=== PATIENT | female | born 1990 | race Caucasian/White ===

== ENCOUNTER 2016-09-03 23:02 | Emergency (ER) | payer BC, OTHER ==
[~2016-09-03] VITALS: Ht 160 cm; Wt 123.9 kg
[~2016-09-03 23:02] MED LIST: AUGMENTIN875 MG PO; CEFTIN500 MG PO; ENDOCET 5-3251 EACH PO; ERGOCALCIF50000 UNIT PO; FLEXERIL10 MG PO; IBUPROFEN800 MG PO; IRON325 M1 PO; LABETALOL HCL200 MG PO; LORTAB 5-325 M1 EACH PO; NAPROSYN500 MG PO; NOHOMEMEDS; NYSTATIN15 GM TP; PEPCID20 MG PO; PRENATAL TABLE1 EAC3 PO; VITAMIN D-32000 UNI1 PO; ZANTAC150 MG PO; ZITHROMAX250 MG PO; ZOFRAN ODT4 MG PO
[2016-09-03 23:10] VITALS: BP 142/87
== END 2016-09-04 00:48 | disposition home or self-care (01) ==
LOC: EME 23:02
DX: S83.91XA Sprain of unspecified site of right knee, initial encounter (principal); X50.9XXA Other and unspecified overexertion or strenuous movements or postures, initial encounter; Z33.1 Pregnant state, incidental; Z3A.18 18 weeks gestation of pregnancy
CPT/HCPCS: 99281; 99283

== ENCOUNTER → 2016-10-27 | Outpatient (CLI) | payer BC, OTHER ==
[~2016-10-27] VITALS: Ht 162.6 cm; Wt 124.3 kg
[~2016-10-27] MED LIST changes: +LO-DOSE ASPIRIN81 M2 PO
[2016-10-27 14:16] VITALS: BP 117/75
== END | disposition home or self-care (01) ==
LOC: IVINF 13:53
DX: Z31.82 Encounter for Rh incompatibility status (principal); Z3A.28 28 weeks gestation of pregnancy
CPT/HCPCS: 96372; J2790

== ENCOUNTER 2016-12-07 12:55 | Outpatient (CLI) | payer BC, OTHER ==
[~2016-12-07] VITALS: Ht 162.6 cm; Wt 130.1 kg
[2016-12-07 13:15] VITALS: BP 121/81
[2016-12-07] MEDS ORDERED: ZANTAC150 MG PO (13:31)
[2016-12-07 13:33] VITALS: BP 131/98
[2016-12-07 13:58] VITALS: BP 134/79
[2016-12-07 14:25] VITALS: BP 100/75
[2016-12-07 14:59] VITALS: BP 130/86
[2016-12-07 15:17] LABS: EOSINOPHIL (%) 1.4 % (0-5); EOSINOPHIL COUNT 0.1 K/uL (0-0.3); HEMATOCRIT 36.9 % (36.0-46.0); IMMATURE GRANULOCYTE (%) 0.7 % (0.0-0.7); IMMATURE GRANULOCYTE COUNT 0.1 K/uL; INSTRUMENT ABS NEUTROPHIL CT 4.2 K/uL; LYMPHOCYTE COUNT 2.5 K/uL (1.0-2.8); MCH 24.8 PG (29.0-34.0); MCV 77.7 FL (83-99); MEAN PLAT.VOLUME 9.9 uM^3 (9.5-12.4); MONOCYTE (%) 5.5 % (3-12); MONOCYTE COUNT 0.4 K/uL (0-0.8); NEUTROPHIL (%) 58.3 % (45-76); NEUTROPHIL COUNT 4.2 K/uL (1.8-6.4); PLATELET COUNT 269 K/uL (156-360); RBC DIS.WIDTH-CV 15.1 % (11.8-14.6); RBC DIS.WIDTH-SD 42.2 % (39-53); RED BLOOD COUNT 4.75 M/uL (3.80-5.20); WHITE BLOOD COUNT 7.3 K/uL (4.1-10.2)
[2016-12-07 15:38] LABS: ANION GAP 8 MEQ/L (2-14); CHLORIDE 105 MEQ/L (99-109); POTASSIUM 4.2 MEQ/L (3.7-5.4); SAMPLE HEMOLYSIS CHECK 0; SAMPLE ICTERIC CHECK 0; SAMPLE LIPEMIA CHECK 0; SODIUM 137 MEQ/L (136-147); TOTAL BILIRUBIN 0.3 MG/DL (0.0-1.0)
[2016-12-07 15:44] LABS: ALKALINE PHOSPHATASE 135 IU/L (3-129); GFR ESTIMATE (CALCULATED) > 59 mL/min/; GLUCOSE 70 mg/dL (70-99); LACTATE DEHYDROGENASE 165 IU/L (20-246); UREA NITROGEN (BUN) 11 mg/dL (9-23); URIC ACID 4.9 mg/dL (3.1-9.2)
[2016-12-07 17:42] LABS: UR CREATININE CONCENTRATION 147.8 MG/DL
[2016-12-08] MEDS ORDERED: PROCARDIA XL30 MG PO (03:59)
== END 2016-12-07 17:32 | disposition home or self-care (01) ==
LOC: LDRP-OP → 2WEST 12:56 → LDRP-OP 03-05 15:25
PROVIDERS: Advanced Practice Midwife
DX: O13.9 Gestational [pregnancy-induced] hypertension without significant proteinuria, unspecified trimester (principal); T46.1X6A Underdosing of calcium-channel blockers, initial encounter; Z91.138 Patient's unintentional underdosing of medication regimen for other reason
CPT/HCPCS: 59025; 80053; 82570; 83615; 84156; 84550; 85025; G0378

== ENCOUNTER 2016-12-08 03:33 | Outpatient (CLI) | payer BC, OTHER ==
[~2016-12-08] VITALS: Ht 162.6 cm; Wt 130.0 kg
[2016-12-08] VITALS (10 sets, daily range): BP systolic 116–157; BP diastolic 65–99
[2016-12-08] MEDS ORDERED: PROCARDIA XL30 MG PO (03:59)
[2016-12-09 02:57] VITALS: BP 116/71
[2016-12-09 08:23] VITALS: BP 122/70
[2016-12-09] MEDS ORDERED: BUTALB-APAP-CA1 EACH PO (09:33)
== END 2016-12-09 09:50 | disposition home or self-care (01) ==
LOC: LDRP-OP 03:33 → 2WEST 03:34 → LDRP-OP 03-05 17:58
PROVIDERS: Advanced Practice Midwife
DX: O10.913 Unspecified pre-existing hypertension complicating pregnancy, third trimester (principal); Z91.14 Patient's other noncompliance with medication regimen; Z3A.32 32 weeks gestation of pregnancy
CPT/HCPCS: 59025; 81050; 84156; G0378

== ENCOUNTER 2016-12-25 19:57 | Inpatient (IN) | payer BC, OTHER ==
[~2016-12-25] VITALS: Ht 162.6 cm; Wt 133.0 kg
[~2016-12-25 19:57] MED LIST changes: +BUTALB-APAP-CA1 EACH PO; +PROCARDIA XL30 MG PO
[2016-12-25 20:12] VITALS: BP 139/89
[2016-12-25 20:44] VITALS: BP 155/99
[2016-12-25 21:17] VITALS: BP 148/94
[2016-12-25 21:31] LABS: EOSINOPHIL (%) 0.6 % (0-5); EOSINOPHIL COUNT 0.1 K/uL (0-0.3); HEMATOCRIT 35.3 % (36.0-46.0); IMMATURE GRANULOCYTE (%) 0.6 % (0.0-0.7); IMMATURE GRANULOCYTE COUNT 0.1 K/uL; LYMPHOCYTE COUNT 2.8 K/uL (1.0-2.8); MCH 25.4 PG (29.0-34.0); MCHC 32.6 G/DL (30.0-36.0); MCV 78.1 FL (83-99); MEAN PLAT.VOLUME 10.7 uM^3 (9.5-12.4); MONOCYTE (%) 5.2 % (3-12); MONOCYTE COUNT 0.4 K/uL (0-0.8); NEUTROPHIL (%) 59.7 % (45-76); PLATELET COUNT 239 K/uL (156-360); RBC DIS.WIDTH-CV 15.2 % (11.8-14.6); RBC DIS.WIDTH-SD 42.8 % (39-53); RED BLOOD COUNT 4.52 M/uL (3.80-5.20); WHITE BLOOD COUNT 8.3 K/uL (4.1-10.2)
[2016-12-25 21:44] LABS: ANION GAP 8 MEQ/L (2-14); CHLORIDE 108 MEQ/L (99-109); POTASSIUM 4.1 MEQ/L (3.7-5.4); SAMPLE HEMOLYSIS CHECK 0; SAMPLE ICTERIC CHECK 0; SAMPLE LIPEMIA CHECK 0; SODIUM 140 MEQ/L (136-147); TOTAL BILIRUBIN 0.3 MG/DL (0.0-1.0)
[2016-12-25 21:49] VITALS: BP 154/103
[2016-12-25 21:50] LABS: ALKALINE PHOSPHATASE 173 IU/L (3-129); GFR ESTIMATE (CALCULATED) > 59 mL/min/; GLUCOSE 87 mg/dL (70-99); LACTATE DEHYDROGENASE 165 IU/L (20-246); UREA NITROGEN (BUN) 15 mg/dL (9-23); URIC ACID 5.7 mg/dL (3.1-9.2)
[2016-12-25 22:07] LABS: UR CREATININE CONCENTRATION 288.5 MG/DL
[2016-12-25 22:33] LABS: CANDIDA DNA PROBE NEGATIVE; GARDNERELLA DNA PROBE NEGATIVE; INTERNAL CONTROL VALID? YES
[2016-12-25 23:04] VITALS: BP 143/103
[2016-12-25 23:47] VITALS: BP 131/81
[2016-12-26] VITALS (10 sets, daily range): BP systolic 119–162; BP diastolic 74–97
[2016-12-26] MEDS ORDERED: PROCARDIA XL60 MG PO (07:04)
[2016-12-26] MEDS ORDERED: URISOL (07:06)
[2016-12-26 07:40] LABS: ADD MIUA? YES; BILIRUBIN NEGATIVE; BLOOD NEGATIVE; COLOR AMBER ((YELLOW)); GLUCOSE (STRIP) NEGATIVE; KETONES 5; LEUKOCYTES NEGATIVE; NITRITE NEGATIVE; PROTEIN (STRIP) >=500; SPECIFIC GRAVITY 1.029 (1.000-1.030); UROBILINOGEN 0.2 MG/DL (0.2-1.0)
[2016-12-26 07:49] LABS: BACTERIA RARE /HPF; EPITHELIAL CELLS RARE /HPF; MUCUS 3+ /LPF; RED BLOOD CELLS 0-5 /HPF (0-5); WHITE BLOOD CELLS 0-5 /HPF (0-5)
[2016-12-26 15:31] LABS: ALKALINE PHOSPHATASE 180 IU/L (3-129); ANION GAP 10 MEQ/L (2-14); CHLORIDE 107 MEQ/L (99-109); GFR ESTIMATE (CALCULATED) > 59 mL/min/; GLUCOSE 122 mg/dL (70-99); POTASSIUM 4.1 MEQ/L (3.7-5.4); SAMPLE HEMOLYSIS CHECK 0; SAMPLE ICTERIC CHECK 0; SAMPLE LIPEMIA CHECK 0; SODIUM 137 MEQ/L (136-147); UREA NITROGEN (BUN) 16 mg/dL (9-23)
[2016-12-26 15:40] LABS: TOTAL BILIRUBIN 0.4 MG/DL (0.0-1.0)
[2016-12-27] VITALS (19 sets, daily range): BP systolic 120–164; BP diastolic 69–105
[2016-12-27 13:29] LABS: EOSINOPHIL (%) 0.1 % (0-5); HEMATOCRIT 35.5 % (36.0-46.0); IMMATURE GRANULOCYTE (%) 2.5 % (0.0-0.7); IMMATURE GRANULOCYTE COUNT 0.2 K/uL; INSTRUMENT ABS NEUTROPHIL CT 5.9 K/uL; LYMPHOCYTE COUNT 1.8 K/uL (1.0-2.8); MCH 25.2 PG (29.0-34.0); MCHC 31.8 G/DL (30.0-36.0); MCV 79.1 FL (83-99); MEAN PLAT.VOLUME 10.7 uM^3 (9.5-12.4); MONOCYTE (%) 4.2 % (3-12); MONOCYTE COUNT 0.4 K/uL (0-0.8); NEUTROPHIL (%) 71.4 % (45-76); NEUTROPHIL COUNT 5.9 K/uL (1.8-6.4); PLATELET COUNT 240 K/uL (156-360); RBC DIS.WIDTH-CV 15.6 % (11.8-14.6); RBC DIS.WIDTH-SD 44.4 % (39-53); RED BLOOD COUNT 4.49 M/uL (3.80-5.20); WHITE BLOOD COUNT 8.2 K/uL (4.1-10.2)
[2016-12-28] VITALS (16 sets, daily range): BP systolic 133–178; BP diastolic 74–94
[2016-12-28 06:19] LABS: EOSINOPHIL (%) 0.1 % (0-5); HEMATOCRIT 28.2 % (36.0-46.0); IMMATURE GRANULOCYTE COUNT 0.1 K/uL; INSTRUMENT ABS NEUTROPHIL CT 7.3 K/uL; LYMPHOCYTE COUNT 2.4 K/uL (1.0-2.8); MCH 25.8 PG (29.0-34.0); MCV 78.3 FL (83-99); MEAN PLAT.VOLUME 10.9 uM^3 (9.5-12.4); MONOCYTE (%) 5.8 % (3-12); MONOCYTE COUNT 0.6 K/uL (0-0.8); NEUTROPHIL (%) 69.6 % (45-76); NEUTROPHIL COUNT 7.3 K/uL (1.8-6.4); PLATELET COUNT 213 K/uL (156-360); RBC DIS.WIDTH-CV 15.8 % (11.8-14.6); RBC DIS.WIDTH-SD 45.1 % (39-53); WHITE BLOOD COUNT 10.5 K/uL (4.1-10.2)
[2016-12-28 06:44] LABS: ANION GAP 7 MEQ/L (2-14); CHLORIDE 104 MEQ/L (99-109); GFR ESTIMATE (CALCULATED) > 59 mL/min/; GLUCOSE 108 mg/dL (70-99); SAMPLE HEMOLYSIS CHECK 0; SAMPLE ICTERIC CHECK 0; SAMPLE LIPEMIA CHECK 0; SODIUM 135 MEQ/L (136-147); UREA NITROGEN (BUN) 10 mg/dL (9-23)
[2016-12-28 06:47] LABS: ALKALINE PHOSPHATASE 118 IU/L (3-129); TOTAL BILIRUBIN 0.2 MG/DL (0.0-1.0)
[2016-12-29 03:36] VITALS: BP 123/61
[2016-12-29 07:33] VITALS: BP 132/80
[2016-12-29 11:00] VITALS: BP 127/74
[2016-12-29 15:00] VITALS: BP 136/77
[2016-12-29 19:52] VITALS: BP 138/77
[2016-12-30] VITALS (7 sets, daily range): BP systolic 112–145; BP diastolic 56–90
[2016-12-30 01:02] LABS: EOSINOPHIL (%) 0.6 % (0-5); EOSINOPHIL COUNT 0.1 K/uL (0-0.3); HEMATOCRIT 29.2 % (36.0-46.0); IMMATURE GRANULOCYTE COUNT 0.1 K/uL; INSTRUMENT ABS NEUTROPHIL CT 6.3 K/uL; LYMPHOCYTE COUNT 1.3 K/uL (1.0-2.8); MCH 25.1 PG (29.0-34.0); MCHC 31.5 G/DL (30.0-36.0); MCV 79.8 FL (83-99); MEAN PLAT.VOLUME 9.9 uM^3 (9.5-12.4); MONOCYTE (%) 3.6 % (3-12); MONOCYTE COUNT 0.3 K/uL (0-0.8); NEUTROPHIL (%) 78.3 % (45-76); NEUTROPHIL COUNT 6.3 K/uL (1.8-6.4); PLATELET COUNT 222 K/uL (156-360); RBC DIS.WIDTH-SD 46.4 % (39-53); RED BLOOD COUNT 3.66 M/uL (3.80-5.20)
[2016-12-31 03:14] VITALS: BP 122/74
[2016-12-31 14:56] VITALS: BP 143/81
[2016-12-31] MEDS ORDERED: ENDOCET 5-3251 EACH PO (16:10)
[2016-12-31] MEDS ORDERED: Procardia XL,Adalat PO (16:10)
[2016-12-31] MEDS ORDERED: AMOX TR-K CLV1 EAC4 PO (16:10)
[2016-12-31] MEDS ORDERED: LABETALOL HCL200 MG PO (16:10)
[2016-12-31 17:53] VITALS: BP 132/79
== END 2016-12-31 18:00 | disposition home or self-care (01) | DRG 765 ==
LOC: LDRP-OP → 2WEST 19:59 → LDRP-OP 03-05 13:24
PROVIDERS: Advanced Practice Midwife; Obstetrics & Gynecology
PROC: 10D00Z1 Extraction of Products of Conception, Low, Open Approach (ICD-10-PCS; principal; 2016-12-25)
DX: O60.14X0 Preterm labor third trimester with preterm delivery third trimester, not applicable or unspecified (principal); O26.62 Liver and biliary tract disorders in childbirth; O34.211 Maternal care for low transverse scar from previous cesarean delivery; O86.12 Endometritis following delivery; O99.214 Obesity complicating childbirth; K83.1 Obstruction of bile duct; E66.01 Morbid (severe) obesity due to excess calories; O14.14 Severe pre-eclampsia complicating childbirth; Z68.42 Body mass index [BMI] 45.0-49.9, adult; Z3A.34 34 weeks gestation of pregnancy; Z37.0 Single live birth
CPT/HCPCS: 76818; 80053; 80170; 81003; 81050; 82239 90; 82570; 83030; 83615; 84156; 84550; 85025; 86870; 86900; 86901; 86905; 86920; 87086; 87480; 87510; 87660; G0378; J0290; J0690; J0702; J1200; J1580; J2175; J2270; J2274; J2765; J2790; J3475; J7050; J7120; Q0177

== ENCOUNTER 2017-04-27 08:30 | Emergency (ER) | payer OTHER ==
[~2017-04-27] VITALS: Ht 162.6 cm; Wt 127.6 kg
[~2017-04-27 08:30] MED LIST changes: +AMOX TR-K CLV1 EAC4 PO; +PROCARDIA XL60 MG PO; +Procardia XL,Adalat PO; +URISOL
[2017-04-27 09:42] VITALS: BP 118/83
== END 2017-04-27 09:30 | disposition home or self-care (01) ==
LOC: EME 08:30
DX: M54.2 Cervicalgia (principal); Z33.1 Pregnant state, incidental; Z3A.01 Less than 8 weeks gestation of pregnancy
CPT/HCPCS: 99281; 99283

== ENCOUNTER 2017-08-17 12:15 | Outpatient (CLI) | payer OTHER ==
[2017-08-17] VITALS (11 sets, daily range): BP systolic 110–173; BP diastolic 58–96
[2017-08-17] MEDS ORDERED: LO-DOSE ASPIRIN81 M1 PO (13:06)
[2017-08-17 13:46] LABS: BASOPHIL (%) 0.1 % (0-1); EOSINOPHIL (%) 1.2 % (0-5); EOSINOPHIL COUNT 0.1 K/uL (0-0.3); HEMATOCRIT 35.9 % (36.0-46.0); HEMOGLOBIN 11.4 G/DL (11.9-15.5); IMMATURE GRANULOCYTE (%) 0.4 % (0.0-0.7); LYMPHOCYTE (%) 29.3 % (15-42); LYMPHOCYTE COUNT 2.2 K/uL (1.0-2.8); MCH 24.1 PG (29.0-34.0); MCHC 31.8 G/DL (30.0-36.0); MCV 75.7 FL (83-99); MONOCYTE (%) 5.3 % (3-12); MONOCYTE COUNT 0.4 K/uL (0-0.8); NEUTROPHIL (%) 63.7 % (45-76); NEUTROPHIL COUNT 4.8 K/uL (1.8-6.4); PLATELET COUNT 291 K/uL (156-360); RBC DIS.WIDTH-CV 15.9 % (11.8-14.6); RBC DIS.WIDTH-SD 43.3 % (39-53); RED BLOOD COUNT 4.74 M/uL (3.80-5.20); WHITE BLOOD COUNT 7.5 K/uL (4.1-10.2)
[2017-08-17 13:55] LABS: UR CREATININE CONCENTRATION 222.4 MG/DL
[2017-08-17 14:04] LABS: ALBUMIN 3.2 G/DL (3.2-4.8); ALKALINE PHOSPHATASE 95 IU/L (3-129); ALT (GPT) 22 IU/L (3-49); AST (GOT) 27 IU/L (2-34); CHLORIDE 105 MEQ/L (99-109); CREATININE 0.6 MG/DL (0.6-1.3); GFR ESTIMATE (CALCULATED) > 59 mL/min/; GLUCOSE 88 mg/dL (70-99); POTASSIUM 4.4 MEQ/L (3.7-5.4); SODIUM 138 MEQ/L (136-147); TOTAL BILIRUBIN 0.3 MG/DL (0.0-1.0); TOTAL PROTEIN 6.3 G/DL (6.4-8.3); UREA NITROGEN (BUN) 10 mg/dL (9-23)
== END 2017-08-17 15:50 | disposition home or self-care (01) ==
LOC: LDRP-OP 12:15 → 2WEST 12:17
PROVIDERS: Midwife
DX: O13.2 Gestational [pregnancy-induced] hypertension without significant proteinuria, second trimester (principal); O26.892 Other specified pregnancy related conditions, second trimester; Z67.91 Unspecified blood type, Rh negative; G43.909 Migraine, unspecified, not intractable, without status migrainosus; O34.219 Maternal care for unspecified type scar from previous cesarean delivery; O99.342 Other mental disorders complicating pregnancy, second trimester; F32.9 Major depressive disorder, single episode, unspecified; F41.9 Anxiety disorder, unspecified; O99.712 Diseases of the skin and subcutaneous tissue complicating pregnancy, second trimester; L30.9 Dermatitis, unspecified; Z3A.23 23 weeks gestation of pregnancy
CPT/HCPCS: 59025; 80053; 82570; 84156; 85025; G0378

== ENCOUNTER → 2017-09-21 | Outpatient (CLI) | payer OTHER ==
[~2017-09-21] VITALS: Ht 160 cm; Wt 130.0 kg
[~2017-09-21] MED LIST changes: +LO-DOSE ASPIRIN81 M1 PO
[2017-09-21 07:34] VITALS: BP 139/65
== END | disposition home or self-care (01) ==
LOC: IVINF 07:25
DX: Z34.83 Encounter for supervision of other normal pregnancy, third trimester (principal); Z3A.28 28 weeks gestation of pregnancy; Z67.41 Type O blood, Rh negative
CPT/HCPCS: 96372; J2790

== ENCOUNTER 2017-11-01 16:28 | Outpatient (CLI) | payer OTHER ==
[2017-11-01] VITALS (13 sets, daily range): BP systolic 118–160; BP diastolic 58–108
[2017-11-01 17:37] LABS: BASOPHIL (%) 0.2 % (0-1); EOSINOPHIL (%) 0.8 % (0-5); EOSINOPHIL COUNT 0.1 K/uL (0-0.3); HEMATOCRIT 35.3 % (36.0-46.0); HEMOGLOBIN 11.2 G/DL (11.9-15.5); IMMATURE GRANULOCYTE (%) 0.6 % (0.0-0.7); LYMPHOCYTE (%) 30.5 % (15-42); LYMPHOCYTE COUNT 2.7 K/uL (1.0-2.8); MCH 24.1 PG (29.0-34.0); MCHC 31.7 G/DL (30.0-36.0); MCV 76.1 FL (83-99); MONOCYTE (%) 5.2 % (3-12); MONOCYTE COUNT 0.5 K/uL (0-0.8); NEUTROPHIL (%) 62.7 % (45-76); NEUTROPHIL COUNT 5.6 K/uL (1.8-6.4); PLATELET COUNT 272 K/uL (156-360); RBC DIS.WIDTH-CV 15.1 % (11.8-14.6); RBC DIS.WIDTH-SD 41.5 % (39-53); RED BLOOD COUNT 4.64 M/uL (3.80-5.20)
[2017-11-01 17:51] LABS: CHLORIDE 106 MEQ/L (99-109); POTASSIUM 4.4 MEQ/L (3.7-5.4); SODIUM 136 MEQ/L (136-147); TOTAL BILIRUBIN 0.3 MG/DL (0.0-1.0)
[2017-11-01 17:57] LABS: UR CREATININE CONCENTRATION 144.4 MG/DL
[2017-11-01 17:57] LABS: ALKALINE PHOSPHATASE 167 IU/L (3-129); ALT (GPT) 60 IU/L (3-49); AST (GOT) 57 IU/L (2-34); CREATININE 0.6 MG/DL (0.6-1.3); GFR ESTIMATE (CALCULATED) > 59 mL/min/; GLUCOSE 102 mg/dL (70-99); LACTATE DEHYDROGENASE 181 IU/L (20-246); TOTAL PROTEIN 5.9 G/DL (6.4-8.3); UREA NITROGEN (BUN) 12 mg/dL (9-23); URIC ACID 4.3 mg/dL (3.1-9.2)
[2017-11-01] MEDS ORDERED: ACTIGALL300 MG PO (18:45)
[2017-11-02 03:36] VITALS: BP 120/68
[2017-11-02 06:59] LABS: BASOPHIL (%) 0.3 % (0-1); EOSINOPHIL (%) 0.9 % (0-5); EOSINOPHIL COUNT 0.1 K/uL (0-0.3); HEMATOCRIT 36.5 % (36.0-46.0); HEMOGLOBIN 11.3 G/DL (11.9-15.5); IMMATURE GRANULOCYTE (%) 0.5 % (0.0-0.7); LYMPHOCYTE (%) 31.8 % (15-42); LYMPHOCYTE COUNT 2.5 K/uL (1.0-2.8); MCH 23.7 PG (29.0-34.0); MCV 76.5 FL (83-99); MONOCYTE (%) 5.1 % (3-12); MONOCYTE COUNT 0.4 K/uL (0-0.8); NEUTROPHIL (%) 61.4 % (45-76); NEUTROPHIL COUNT 4.8 K/uL (1.8-6.4); PLATELET COUNT 266 K/uL (156-360); RBC DIS.WIDTH-CV 15.1 % (11.8-14.6); RBC DIS.WIDTH-SD 41.6 % (39-53); RED BLOOD COUNT 4.77 M/uL (3.80-5.20); WHITE BLOOD COUNT 7.9 K/uL (4.1-10.2)
[2017-11-02 07:24] LABS: ALBUMIN 2.9 G/DL (3.2-4.8); ALKALINE PHOSPHATASE 155 IU/L (3-129); ALT (GPT) 61 IU/L (3-49); AST (GOT) 54 IU/L (2-34); CHLORIDE 103 MEQ/L (99-109); CREATININE 0.5 MG/DL (0.6-1.3); GFR ESTIMATE (CALCULATED) > 59 mL/min/; GLUCOSE 75 mg/dL (70-99); POTASSIUM 4.6 MEQ/L (3.7-5.4); SODIUM 136 MEQ/L (136-147); TOTAL BILIRUBIN 0.3 MG/DL (0.0-1.0); UREA NITROGEN (BUN) 10 mg/dL (9-23)
[2017-11-02 07:43] VITALS: BP 109/63
[2017-11-02 10:31] VITALS: BP 139/83
== END 2017-11-02 11:20 | disposition home or self-care (01) ==
LOC: LDRP-OP 16:28 → 2WEST 16:31 → LDRP-OP 01-14 15:57
PROVIDERS: Obstetrics & Gynecology
DX: O16.3 Unspecified maternal hypertension, third trimester (principal); O26.613 Liver and biliary tract disorders in pregnancy, third trimester; K83.1 Obstruction of bile duct; O99.89 Other specified diseases and conditions complicating pregnancy, childbirth and the puerperium; R79.89 Other specified abnormal findings of blood chemistry; O99.213 Obesity complicating pregnancy, third trimester; E66.01 Morbid (severe) obesity due to excess calories; Z68.42 Body mass index [BMI] 45.0-49.9, adult; O34.219 Maternal care for unspecified type scar from previous cesarean delivery; Z3A.33 33 weeks gestation of pregnancy; Z87.51 Personal history of pre-term labor
CPT/HCPCS: 59025; 80053; 82570; 83615; 84156; 84550; 85025; G0378

== ENCOUNTER 2017-11-03 09:31 | Outpatient (CLI) | payer OTHER ==
[2017-11-03] VITALS (9 sets, daily range): BP systolic 123–146; BP diastolic 75–94
[~2017-11-03 09:31] MED LIST changes: +ACTIGALL300 MG PO
[2017-11-03 11:01] LABS: BASOPHIL (%) 0.3 % (0-1); EOSINOPHIL (%) 0.8 % (0-5); EOSINOPHIL COUNT 0.1 K/uL (0-0.3); HEMATOCRIT 33.9 % (36.0-46.0); HEMOGLOBIN 10.9 G/DL (11.9-15.5); IMMATURE GRANULOCYTE (%) 0.3 % (0.0-0.7); LYMPHOCYTE (%) 27.7 % (15-42); LYMPHOCYTE COUNT 2.1 K/uL (1.0-2.8); MCH 24.5 PG (29.0-34.0); MCHC 32.2 G/DL (30.0-36.0); MCV 76.2 FL (83-99); MONOCYTE (%) 4.7 % (3-12); MONOCYTE COUNT 0.4 K/uL (0-0.8); NEUTROPHIL (%) 66.2 % (45-76); PLATELET COUNT 249 K/uL (156-360); RBC DIS.WIDTH-CV 15.1 % (11.8-14.6); RBC DIS.WIDTH-SD 41.7 % (39-53); RED BLOOD COUNT 4.45 M/uL (3.80-5.20); WHITE BLOOD COUNT 7.6 K/uL (4.1-10.2)
[2017-11-03 11:40] LABS: ALBUMIN 2.7 G/DL (3.2-4.8); ALKALINE PHOSPHATASE 147 IU/L (3-129); ALT (GPT) 54 IU/L (3-49); AST (GOT) 47 IU/L (2-34); CHLORIDE 106 MEQ/L (99-109); CREATININE 0.6 MG/DL (0.6-1.3); GFR ESTIMATE (CALCULATED) > 59 mL/min/; POTASSIUM 3.9 MEQ/L (3.7-5.4); SODIUM 138 MEQ/L (136-147); TOTAL PROTEIN 5.8 G/DL (6.4-8.3); UREA NITROGEN (BUN) 11 mg/dL (9-23)
[2017-11-03 11:44] LABS: GLUCOSE 95 mg/dL (70-99); TOTAL BILIRUBIN 0.4 MG/DL (0.0-1.0)
[2017-11-03 16:05] LABS: 24 HR VOLUME 1150 MLS
== END 2017-11-03 16:40 | disposition home or self-care (01) ==
LOC: LDRP-OP 09:31 → 2WEST 09:32 → LDRP-OP 01-14 11:34
PROVIDERS: Nurse Practitioner
DX: O13.3 Gestational [pregnancy-induced] hypertension without significant proteinuria, third trimester (principal); O26.613 Liver and biliary tract disorders in pregnancy, third trimester; K83.1 Obstruction of bile duct; Z3A.34 34 weeks gestation of pregnancy
CPT/HCPCS: 59025; 80053; 81050; 84156; 85025; G0378

== ENCOUNTER 2017-11-05 15:07 | Inpatient (IN) | payer OTHER ==
[~2017-11-05] VITALS: Ht 160 cm; Wt 131.8 kg
[2017-11-05] VITALS (7 sets, daily range): BP systolic 130–148; BP diastolic 77–100
[2017-11-05 15:53] LABS: BASOPHIL (%) 0.2 % (0-1); EOSINOPHIL (%) 0.4 % (0-5); HEMATOCRIT 34.4 % (36.0-46.0); HEMOGLOBIN 11.3 G/DL (11.9-15.5); IMMATURE GRANULOCYTE (%) 0.4 % (0.0-0.7); LYMPHOCYTE (%) 25.3 % (15-42); LYMPHOCYTE COUNT 2.3 K/uL (1.0-2.8); MCH 24.9 PG (29.0-34.0); MCHC 32.8 G/DL (30.0-36.0); MCV 75.8 FL (83-99); MONOCYTE (%) 5.6 % (3-12); MONOCYTE COUNT 0.5 K/uL (0-0.8); NEUTROPHIL (%) 68.1 % (45-76); NEUTROPHIL COUNT 6.1 K/uL (1.8-6.4); PLATELET COUNT 282 K/uL (156-360); RBC DIS.WIDTH-CV 15.4 % (11.8-14.6); RBC DIS.WIDTH-SD 41.3 % (39-53); RED BLOOD COUNT 4.54 M/uL (3.80-5.20)
[2017-11-05 16:33] LABS: ALBUMIN 3.1 G/DL (3.2-4.8); ALKALINE PHOSPHATASE 141 IU/L (3-129); ALT (GPT) 42 IU/L (3-49); AST (GOT) 39 IU/L (2-34); CHLORIDE 108 MEQ/L (99-109); CREATININE 0.7 MG/DL (0.6-1.3); GFR ESTIMATE (CALCULATED) > 59 mL/min/; GLUCOSE 90 mg/dL (70-99); SODIUM 137 MEQ/L (136-147); TOTAL PROTEIN 6.2 G/DL (6.4-8.3); UREA NITROGEN (BUN) 11 mg/dL (9-23)
[2017-11-05 16:35] LABS: TOTAL BILIRUBIN 0.3 MG/DL (0.0-1.0)
[2017-11-05 18:54] LABS: PHENCYCLIDINE NEGATIVE (25 ng/mL); THC CANNABINOIDS NEGATIVE (50 ng/mL)
[2017-11-05 18:55] LABS: AMPHETAMINE NEGATIVE (500 ng/mL); BARBITURATES NEGATIVE (200 ng/mL); BENZODIAZEPINES NEGATIVE (150 ng/mL); BUPRENORPHINE NEGATIVE (10 ng/mL); COCAINE NEGATIVE (150 ng/mL); METHADONE NEGATIVE (200 ng/mL); METHAMPHETAMINE NEGATIVE (500 ng/mL); OPIATES (MORPHINE) NEGATIVE (100 ng/mL); OXYCODONE NEGATIVE (100 ng/mL); PROPOXYPHENE NEGATIVE (300 ng/mL); TRICYCLIC ANTIDEPRESSANTS NEGATIVE (300 ng/mL)
[2017-11-06] VITALS (19 sets, daily range): BP systolic 118–175; BP diastolic 58–110
[2017-11-06 06:11] LABS: BASOPHIL (%) 0.2 % (0-1); EOSINOPHIL (%) 0 % (0-5); HEMATOCRIT 36.4 % (36.0-46.0); HEMOGLOBIN 11.6 G/DL (11.9-15.5); IMMATURE GRANULOCYTE (%) 1.2 % (0.0-0.7); LYMPHOCYTE (%) 15.4 % (15-42); LYMPHOCYTE COUNT 1.4 K/uL (1.0-2.8); MCH 24.3 PG (29.0-34.0); MCHC 31.9 G/DL (30.0-36.0); MCV 76.3 FL (83-99); MONOCYTE (%) 1.4 % (3-12); MONOCYTE COUNT 0.1 K/uL (0-0.8); NEUTROPHIL (%) 81.8 % (45-76); NEUTROPHIL COUNT 7.5 K/uL (1.8-6.4); PLATELET COUNT 284 K/uL (156-360); RBC DIS.WIDTH-CV 15.2 % (11.8-14.6); RBC DIS.WIDTH-SD 41.6 % (39-53); RED BLOOD COUNT 4.77 M/uL (3.80-5.20); WHITE BLOOD COUNT 9.1 K/uL (4.1-10.2)
[2017-11-06 06:29] LABS: ALKALINE PHOSPHATASE 147 IU/L (3-129); ALT (GPT) 41 IU/L (3-49); AST (GOT) 39 IU/L (2-34); CHLORIDE 104 MEQ/L (99-109); CREATININE 0.6 MG/DL (0.6-1.3); GFR ESTIMATE (CALCULATED) > 59 mL/min/; SODIUM 136 MEQ/L (136-147); TOTAL BILIRUBIN 0.3 MG/DL (0.0-1.0); TOTAL PROTEIN 6.1 G/DL (6.4-8.3); UREA NITROGEN (BUN) 11 mg/dL (9-23)
[2017-11-06 06:38] LABS: GLUCOSE 114 mg/dL (70-99)
[2017-11-06] MEDS ORDERED: PERCOCET 5/31 TABLET PO (08:02)
[2017-11-06] MEDS ORDERED: MOTRIN800 MG PO (08:02)
[2017-11-07] VITALS (17 sets, daily range): BP systolic 105–136; BP diastolic 55–81
[2017-11-07 05:35] LABS: BASOPHIL (%) 0.1 % (0-1); EOSINOPHIL (%) 0 % (0-5); HEMATOCRIT 30.6 % (36.0-46.0); HEMOGLOBIN 9.7 G/DL (11.9-15.5); IMMATURE GRANULOCYTE (%) 0.6 % (0.0-0.7); LYMPHOCYTE (%) 16.4 % (15-42); LYMPHOCYTE COUNT 1.8 K/uL (1.0-2.8); MCH 24.4 PG (29.0-34.0); MCHC 31.7 G/DL (30.0-36.0); MCV 76.9 FL (83-99); MONOCYTE (%) 6.6 % (3-12); MONOCYTE COUNT 0.7 K/uL (0-0.8); NEUTROPHIL (%) 76.3 % (45-76); NEUTROPHIL COUNT 8.4 K/uL (1.8-6.4); PLATELET COUNT 273 K/uL (156-360); RBC DIS.WIDTH-CV 15.1 % (11.8-14.6); RBC DIS.WIDTH-SD 41.7 % (39-53); RED BLOOD COUNT 3.98 M/uL (3.80-5.20); WHITE BLOOD COUNT 11.1 K/uL (4.1-10.2)
[2017-11-08 03:34] VITALS: BP 101/55
[2017-11-08 07:21] VITALS: BP 125/81
[2017-11-08 12:24] VITALS: BP 129/84
[2017-11-08 15:21] VITALS: BP 127/77
[2017-11-08 23:33] VITALS: BP 151/82
[2017-11-09 07:22] VITALS: BP 121/68
[2017-11-09 10:25] VITALS: BP 128/85
[2017-11-09 15:27] VITALS: BP 158/92
[2017-11-09 15:29] VITALS: BP 137/66
[2017-11-09 20:35] VITALS: BP 133/81
[2017-11-10 05:33] VITALS: BP 130/82
[2017-11-10 08:44] VITALS: BP 138/84
[2017-11-10] MEDS ORDERED: MACROBID100 MG PO (09:39)
== END 2017-11-10 11:40 | disposition home or self-care (01) | DRG 765 ==
LOC: LDRP-OP 15:07 → 2WEST 15:08 → LDRP-OP 01-14 17:18
PROVIDERS: Obstetrics & Gynecology; Obstetrics & Gynecology Obstetrics
PROC: 10D00Z1 Extraction of Products of Conception, Low, Open Approach (ICD-10-PCS; principal; 2017-11-06)
DX: O14.14 Severe pre-eclampsia complicating childbirth (principal); O60.14X0 Preterm labor third trimester with preterm delivery third trimester, not applicable or unspecified; Z37.0 Single live birth; N83.202 Unspecified ovarian cyst, left side; N83.201 Unspecified ovarian cyst, right side; K83.1 Obstruction of bile duct; Z3A.34 34 weeks gestation of pregnancy; O69.81X0 Labor and delivery complicated by cord around neck, without compression, not applicable or unspecified; Z68.41 Body mass index [BMI] 40.0-44.9, adult; O99.214 Obesity complicating childbirth; O99.02 Anemia complicating childbirth; D50.9 Iron deficiency anemia, unspecified; O34.211 Maternal care for low transverse scar from previous cesarean delivery; E66.01 Morbid (severe) obesity due to excess calories
CPT/HCPCS: 59025; 80053; 81050; 83030; 83735; 84156; 85025; 86850; 86870; 86900; 86901; 86905; 86920; 87077; 87081; 87086; 87186; 87653; 88304; 88307; G0378; J0330; J0690; J0702; J1200; J2274; J2300; J2405; J2590; J2790; J3010; J3475; J7120; S0020

== ENCOUNTER 2017-12-13 07:53 | Day surgery (SDC) | payer OTHER ==
[~2017-12-13] VITALS: Ht 160 cm; Wt 124.7 kg
[~2017-12-13 07:53] MED LIST changes: +MACROBID100 MG PO; +MOTRIN800 MG PO; +PERCOCET 5/31 TABLET PO
[2017-12-13 08:05] VITALS: BP 138/91
[2017-12-13 08:27] LABS: BASOPHIL (%) 0.4 % (0-1); EOSINOPHIL (%) 2.5 % (0-5); EOSINOPHIL COUNT 0.2 K/uL (0-0.3); HEMATOCRIT 36.4 % (36.0-46.0); HEMOGLOBIN 11.4 G/DL (11.9-15.5); IMMATURE GRANULOCYTE (%) 0.7 % (0.0-0.7); LYMPHOCYTE (%) 40.7 % (15-42); LYMPHOCYTE COUNT 2.8 K/uL (1.0-2.8); MCH 23.7 PG (29.0-34.0); MCHC 31.3 G/DL (30.0-36.0); MCV 75.7 FL (83-99); MONOCYTE (%) 5.7 % (3-12); MONOCYTE COUNT 0.4 K/uL (0-0.8); NEUTROPHIL COUNT 3.4 K/uL (1.8-6.4); PLATELET COUNT 324 K/uL (156-360); RBC DIS.WIDTH-CV 14.7 % (11.8-14.6); RBC DIS.WIDTH-SD 40.5 % (39-53); RED BLOOD COUNT 4.81 M/uL (3.80-5.20); WHITE BLOOD COUNT 6.9 K/uL (4.1-10.2)
[2017-12-13] MEDS ORDERED: AUGMENTIN875 MG PO (12:07)
[2017-12-13] MEDS ORDERED: ENDOCET 5-3251 EACH PO (12:07)
[2017-12-13] MEDS ORDERED: IBUPROFEN800 MG PO (12:07)
[2017-12-13 13:10] VITALS: BP 129/83
[2017-12-13 14:24] VITALS: BP 150/64
[2017-12-13 16:08] VITALS: BP 136/79
[2017-12-13 18:08] VITALS: BP 127/79
[2017-12-13 19:00] VITALS: BP 132/60
== END 2017-12-13 19:14 | disposition home or self-care (01) ==
LOC: SDC 07:53 → EDSTATUS 08:17 → SDC 08:18 → 2SOUTH 13:24 → SDC 16:03
PROVIDERS: Obstetrics & Gynecology Obstetrics
PROC: 0UT74ZZ Resection of Bilateral Fallopian Tubes, Percutaneous Endoscopic Approach (ICD-10-PCS; principal; 2017-12-13)
PROC: 0UB24ZZ Excision of Bilateral Ovaries, Percutaneous Endoscopic Approach (ICD-10-PCS; principal; 2017-12-13)
DX: Z30.2 Encounter for sterilization (principal); D27.1 Benign neoplasm of left ovary; D27.0 Benign neoplasm of right ovary; Z82.49 Family history of ischemic heart disease and other diseases of the circulatory system; Z83.49 Family history of other endocrine, nutritional and metabolic diseases; Z83.3 Family history of diabetes mellitus; Z80.3 Family history of malignant neoplasm of breast; Z82.3 Family history of stroke; Z81.8 Family history of other mental and behavioral disorders
CPT/HCPCS: 84702; 85025; 88307; J0131; J0330; J0690; J1100; J1170; J1885; J2250; J2405; J2710; J3010; J7643; Q0175; S0020

== ENCOUNTER 2017-12-14 17:02 | Emergency (ER) | payer OTHER ==
[~2017-12-14] VITALS: Ht 160 cm; Wt 129.7 kg
[2017-12-14 18:51] LABS: HEMATOCRIT 33.8 % (36.0-46.0); HEMOGLOBIN 10.5 G/DL (11.9-15.5); MCH 23.8 PG (29.0-34.0); MCHC 31.1 G/DL (30.0-36.0); MCV 76.5 FL (83-99); PLATELET COUNT 308 K/uL (156-360); RBC DIS.WIDTH-CV 14.9 % (11.8-14.6); RBC DIS.WIDTH-SD 41.1 % (39-53); RED BLOOD COUNT 4.42 M/uL (3.80-5.20); WHITE BLOOD COUNT 10.7 K/uL (4.1-10.2)
[2017-12-14 19:00] LABS: CHLORIDE 104 mEq/L (99-109); POTASSIUM 3.9 mEq/L (3.7-5.4); SODIUM 140 mEq/L (136-147)
[2017-12-14 19:02] LABS: GLUCOSE 101 mg/dL (70-99)
[2017-12-14 19:06] LABS: CREATININE 0.8 mg/dL (0.6-1.3); GFR ESTIMATE (CALCULATED) > 59 mL/min/
[2017-12-14 19:07] LABS: UREA NITROGEN (BUN) 14 mg/dL (9-23)
[2017-12-14 19:12] LABS: TROP-I INTERPRETATION NEGATIVE; TROPONIN-I < 0.01 ng/mL (0.0-0.30)
[2017-12-14 19:14] LABS: QUANTITATIVE HCG < 4.0 MIU/ML
[2017-12-14 22:45] VITALS: BP 139/93
== END 2017-12-14 22:46 | disposition home or self-care (01) ==
LOC: RME 17:02 → EME 17:02 → RME 22:46
DX: R07.9 Chest pain, unspecified (principal); M54.9 Dorsalgia, unspecified; D64.9 Anemia, unspecified; Z98.51 Tubal ligation status; I10 Essential (primary) hypertension; K21.9 Gastro-esophageal reflux disease without esophagitis
CPT/HCPCS: 71046; 71275; 80048; 84484; 84702; 85027; 93005; 99281; 99284; J1885; J7120